=== PATIENT | female | born 1950 | race Caucasian/White ===

== ENCOUNTER 2016-06-25 18:05 | Inpatient (IN) | payer MEDICARE ==
--- NOTE | ~2016-06-25 | IDS ---
Interim Discharge Summary [facility] [address] [place]. [address] NAME: DEENA JAUREGUI : [birth year] STATUS : ADM IN [facility]#: [id number] AGE: 65 ADM/REG DATE : 06/25/16 MR#: [id number] REPORT SERV DATE: 07/10/16 DICTATED BY: MOY CAMACHO DATE: 07/09/16 REPORT STATUS : Draft TRANSCRIBED BY: MODL DATE: 07/09/16 ADMISSION DATE: 06/25/2016 DISCHARGE DATE: Interim summary covers period 07/03/2016 through 07/09/2016. CURRENT DIAGNOSES: 1. Oropharyngeal dysphagia. 2. Moderate malnutrition with calorie count demonstrating 590 kilocalories, 27 g of protein per 24 hour. 36% and 41% estimate of 24-hour needs. 3. PEG tube placement on 07/05/2016, currently on enteral nutrition without complication. 4. Advanced multiple sclerosis with paraplegia. 5. Vancomycin-resistant enterococci on admission, partially treated. 6. Aspiration pneumonia, right lower lobe, treated. 7. Chronic anemia. 8. Chronic thrombocytosis. 9. Chronic wounds present on admission, stable and improving. 10.Systemic hypertension. 11.Left hip fracture, nonoperative intervention planned. 12.Chronic pain disorder. 13.Acute constipation, post PEG placement, improved. 14.Right breast nodule, outpatient mammography and ultrasound needed. 15.Persistent tachycardia and leukocytosis, suspected urinary tract etiology, repeat culture pending, ampicillin for suspected Vancomycin-resistant enterococci initiated today. OPERATIONS AND PROCEDURES DURING INTERIM: Upper GI endoscopy and PEG tube placement on 07/05/[address] Rodriguez. INTERIM SUMMARY: Her hospitalist care was assumed on 07/03/2016. Her calorie count was completed with findings as noted above. PEG tube placement and enteral alimentation were discussed with the patient and her daughter and agreed to. She was seen in followup consultation by Dr. Rodriguez and the above-mentioned procedure was performed. Enteral feeding recommendation by Nutrition Services promote with a goal of 80 mL/h. Today, she is at her goal rate and tolerating this well. She continues p.o. intake. Her chronic medical problems are otherwise unchanged. She was to have been discharged at the end of last week, but had persistent leukocytosis and tachycardia. Her evaluation has included a chest x-ray that shows no pulmonary infiltrate. A KUB is unremarkable post PEG except for free air related to PEG and a large amount of stool. Her PICC line was removed. Blood cultures were obtained and were no growth. Her wounds were inspected 72 hours apart and seem to be improving with no areas of cellulitis or abscess formation. Interim Discharge Summary [facility] [address] [place]. [address] NAME: DEENA JAUREGUI : [birth year] STATUS : ADM IN [facility]#: [id number] AGE: 65 ADM/REG DATE : 06/25/16 MR#: [id number] REPORT SERV DATE: 07/10/16 DICTATED BY: MOY CAMACHO DATE: 07/09/16 REPORT STATUS : Draft TRANSCRIBED BY: MODGeraldo DATE: 07/09/16 On admission, she grew VRE. She received some treatment. A followup urine today obtained from her suprapubic catheter suggest an ongoing infection. Current plan is to initiate ampicillin IV on the assumption that this is persistent VRE, with antibiotic directed sensitivity adjustments pending final culture results. Her plans are to return home with home health care and continuous feeding. Hospitalist care to be assumed by Dr. Cheung. DD/TEDDY Moy Camacho M.D. / [id number] CC: Ed Power M.D.
--- NOTE | ~2016-06-25 | IDS ---
Interim Discharge Summary [facility] [address] [place]. [address] NAME: DEENA JAUREGUI : [birth year] STATUS : ADM IN [facility]#: [id number] AGE: 65 ADM/REG DATE : 06/25/16 MR#: [id number] REPORT SERV DATE: 07/03/16 DICTATED BY: BEN PEDRO DATE: 07/02/16 REPORT STATUS : Draft TRANSCRIBED BY: MODGeraldo DATE: 07/02/16 ADMISSION DATE: 06/25/2016 DISCHARGE DATE: WORKING DIAGNOSES: 1. Acute encephalopathy, present on admission, resolved. 2. Urinary tract infection, resolving. 3. Question aspiration pneumonia, resolving. 4. Advanced multiple sclerosis, longstanding with debilitation at baseline. 5. Dysphagia. 6. Left femur fracture, conservative management. 7. Hypertension. CONSULTS: 1. GI. 2. Orthopedic Surgery. 3. Critical Care. PROCEDURES: None. HOSPITAL COURSE: This is a 65-year-old lady who was admitted to the hospital with an acute encephalopathy and hypotension, for details please refer to H and P by Dr. Borjas. Also, for details of the patient's ICU stay, please refer to interim discharge summary by Dr. Aragon. By the time I assumed care of this patient, the patient was actually doing much better. The patient's initial presentation of acute encephalopathy has all resolved, and the patient was basically back at her baseline. In going over the patient's medical conditions, it was noted the patient was suffering from a long-standing multiple sclerosis that is quite advanced. The patient also seemed to have been suffering from dysphagia, and there was a potential aspiration pneumonia. As part of the reason for patient's sepsis on initial hospital admission, the patient was seen by Speech Therapy who recommended video esophagram. Unfortunately, the patient is not able to keep herself up for the duration of video esophagram due to her advanced multiple sclerosis. The patient also had a bedside swallow screen per RN which she did not pass. Interestingly, the patient is not grossly aspirating, and the patient has been tolerating diet even by the time I assumed care. I had a lengthy discussion with the patient and the patient's family, who actually has medical background, and they requested an evaluation for a feeding tube which would likely reduce her chance of aspiration in the future. Dr. Rodriguez of Gastroenterology was thus involved. However, based on the fact that the patient was tolerating p.o. without any obvious aspiration episodes, he did not feel that an invasive procedure such as PEG tube placement was warranted at this point in time. Instead, 72 hour calorie count was suggested, and if the patient is not able to maintain adequate caloric intake, the patient will be re-evaluated for PEG tube placement, and thus, the last couple of days of the hospital stay has been simply monitoring the patient for any further episodes of obvious aspiration as well as calorie counting. The patient has now completed her antibiotic course by the end of today, and the patient will be ready for discharge any time she completes the calorie count unless other complications arise. Interim Discharge Summary [address] [place]. [address] NAME: DEENA JAUREGUI : [birth year] STATUS : ADM IN [facility]#: [id number] AGE: 65 ADM/REG DATE : 06/25/16 MR#: [id number] REPORT SERV DATE: 07/03/16 DICTATED BY: BEN PEDRO DATE: 07/02/16 REPORT STATUS : Draft TRANSCRIBED BY: TEDDY DATE: 07/02/16 Peace/TEDDY Ben Pedro MD / [id number] CC: Ben Pedro MD
--- NOTE | ~2016-06-25 | EGD ---
EGD REPORT [facility] [address] [address] NAME: CANDE JAUREGUI : [birth year] STATUS : ADM IN PAT#: [id number] AGE: 65 ADM/REG DATE : 06/25/16 MR#: [id number] REPORT SERV DATE: 07/05/16 DICTATED BY: JOSEE DAMICO DATE: 07/05/16 REPORT STATUS : Draft TRANSCRIBED BY: [facility] DATE: 07/05/16 [facility] Patient Name: Cande Jauregui Date of : 1950 Attending MD: JOSEE DAMICO MD Procedure Date No Time: 07/05/2016 Procedure: Upper GI endoscopy Indications: Place PEG due to neurological disorder ( severe MS ) causing impaired swallowing, Malnutrition Referring MD: PRADEEP TREVINO Medicines: Propofol per Anesthesia Complications: No immediate complications. Procedure: After obtaining informed consent, the endoscope was passed under direct vision. Throughout the procedure, the patient's blood pressure, pulse, and oxygen saturations were monitored continuously. The GIF [id number] was introduced through the mouth, and advanced to the third part of duodenum. The upper GI endoscopy was accomplished without difficulty. The patient tolerated the procedure well. Findings: The examined esophagus was normal. A small hiatus hernia was present. as seen on retroflexion Diffuse mild inflammation characterized by congestion (edema) and erythema was found in the entire examined stomach. The patient was placed in the supine position for PEG placement. The stomach was insufflated to appose gastric and abdominal gill. A site was located in the body of the stomach with excellent transillumination for placement. The abdominal wall was marked and prepped in a sterile manner. The area was anesthetized with 3 mL of 1% lidocaine. The trocar needle was introduced through the abdominal wall and into the stomach under direct endoscopic view. A snare was introduced through the endoscope and opened in the gastric lumen. The guide wire was passed through the trocar and into the open snare. The snare was closed around the guide wire. The endoscope and snare were removed, pulling the wire out through the mouth. A skin incision was made at the site of needle insertion. The externally removable 24 Fr EndoVive Safety gastrostomy tube was lubricated. The G-tube was passed over the guide wire through the mouth, and into the stomach. The trocar needle was removed, and the gastrostomy tube was pulled out from the stomach through the skin. The guide wire was removed, and the external bumper attached to the gastrostomy tube. The feeding tube was then cut to an appropriate length. The final position of the gastrostomy tube was confirmed by relook endoscopy, and skin marking noted to be 3 cm at the external bumper. The final tension EGD REPORT [address] [place]. [address] NAME: CANDE JAUREGUI : [birth year] STATUS : ADM IN [facility]#: [id number] AGE: 65 ADM/REG DATE : 06/25/16 MR#: [id number] REPORT SERV DATE: 07/05/16 DICTATED BY: JOSEE DAMICO DATE: 07/05/16 REPORT STATUS : Draft TRANSCRIBED BY: [employer] DATE: 07/05/16 and compression of the abdominal wall by the PEG tube and external bumper were checked and revealed that the bumper was loose and lightly touching the skin and that the PEG balloon was loose and lightly touching the stomach. The feeding tube was capped, and the tube site was cleaned and dressed. The examined duodenum was normal. Impression: - Normal esophagus. - Hiatus hernia. - Gastritis. - Normal examined duodenum. - An externally removable PEG placement was successfully completed. Recommendation: - Clear liquid diet. - Return to previous diet. - Please follow the post-PEG recommendations including: may use PEG today for meds and water and may use PEG tomorrow for feedings. - [facility] patient to [facility] care. Procedure Code(s): --- Professional --- 51549, Esophagogastroduodenoscopy, flexible, transoral; with directed placement of percutaneous gastrostomy tube Diagnosis Code(s): --- Professional --- K44.9, Diaphragmatic hernia without obstruction or gangrene K29.70, Gastritis, unspecified, without bleeding R29.81, Other symptoms and signs involving the nervous system R13.10, Dysphagia, unspecified Z43.1, Encounter for attention to gastrostomy E46, Unspecified protein-calorie malnutrition CPT copyright 2013 [employer] [place] [employer]. All rights reserved. The codes documented in this report are preliminary and upon asphalt paver operator review may be revised to meet current compliance requirements. Josee Damico MD JOSEE DAMICO MD 07/05/2016 4:38 PM This report has been signed electronically. Number of Addenda: 0 EGD REPORT [facility] [address] [place], [place] [address] [place], [place]. [address] NAME: CANDE JAUREGUI : [birth year] STATUS : ADM IN [facility]#: [id number] AGE: 65 ADM/REG DATE : 06/25/16 MR#: [id number] REPORT SERV DATE: 07/05/16 DICTATED BY: JOSEE DAMICO DATE: 07/05/16 REPORT STATUS : Draft TRANSCRIBED BY: [employer] DATE: 07/05/16 Note Initiated On: 07/05/2016 3:39 PM Scope Withdrawal Time 0 hours 0 minutes 0 seconds [address] [place] [address]
--- NOTE | ~2016-06-25 | HP ---
History And Physical [facility] [address] [place]. [address] NAME: DEENA JAUREGUI : [birth year] STATUS : ADM IN PAT#: [id number] AGE: 65 ADM/REG DATE : 06/25/16 MR#: [id number] REPORT SERV DATE: 06/26/16 DICTATED BY: MOY BORJAS DATE: 06/26/16 REPORT STATUS : Draft TRANSCRIBED BY: TEDDY DATE: 06/26/16 DATE OF ADMISSION: 06/25/2016 CHIEF COMPLAINT: Altered mental status. HISTORY OF PRESENT ILLNESS: The patient is a 65-year-old white female with a past medical history of end-stage multiple sclerosis with severe debilitation with paraplegia and chronically bed-bound as well as a history of decubitus ulcers with a history of recurrent urinary tract infections who was brought to the emergency room earlier today by her family with complaints of altered mental status and increasing lethargy. Daughter is not at the bedside at the time of my interview, but per the ER report, the patient's daughter brought her to the emergency room today after she had noticed some increasing lethargy over the past 24 hours. Initially on arrival here to the emergency room, the patient was hypotense with a systolic blood pressure in the 60s and 70s and an elevated white blood cell count at 28,000 as well as evidence of a urinary tract infection. She was thought to be septic and was given antibiotics as well as some IV fluids. It was then noted that she is on chronic narcotics and was given a dose of Narcan by the ER physician. After the dose of Narcan, patient's mental status improved dramatically, and she woke up and began conversing. She then began to doze back off and so was started on a Narcan drip and was sent up to the ICU for further management. The patient received 2 L IV fluids in the emergency room, which improved her blood pressure. In talking with the patient, she says that she has had some secretions with a cough for the last 3 days. She notes that she has been running some low- grade fevers, but no chills or sweats. She denies any sick contacts. She also notes some increasing shortness of breath over the last day or two. She says this is atypical for her. She denies any pain. She denies any recent trauma or falls. PAST MEDICAL HISTORY: 1. Severe multiple sclerosis with paraplegia and chronic bed-bound state. 2. History of recurrent chronic urinary tract infections with indwelling suprapubic Haji catheter. 3. History of multiple decubitus ulcers followed by Dr. Marquez. 4. Mitral valve prolapse. 5. Hypertension. 6. History of nephrolithiasis, status post left ureteral stent placement for hydronephrosis. 7. History of colostomy. 8. History of hysterectomy. 9. History of knee surgery. ALLERGIES: INCLUDE CONTRAST, ROCEPHIN, AND COMPAZINE. HOME MEDICATIONS: See medication reconciliation form. SOCIAL HISTORY: Lives with her daughter. No tobacco, alcohol, or IV drug abuse. FAMILY HISTORY: Reviewed per the chart, mother with cancer and her father with hypertension. History And Physical [address] [address] NAME: DEENA JAUREGUI : [birth year] STATUS : ADM IN [facility]#: [id number] AGE: 65 ADM/REG DATE : 06/25/16 MR#: [id number] REPORT SERV DATE: 06/26/16 DICTATED BY: MOY BORJAS DATE: 06/26/16 REPORT STATUS : Draft TRANSCRIBED BY: TEDDY DATE: 06/26/16 REVIEW OF SYSTEMS: Ten-point review of systems is negative except as mentioned in the HPI. PHYSICAL EXAMINATION: VITAL SIGNS: Temperature 98.4, heart rate 116, blood pressure 152/67, respiratory rate 15, saturations 96%. GENERAL: No acute distress. HEENT: Pupils equal, round, and reactive to light. Extraocular movements intact. Dry mucous membranes. NECK: Supple, nontender. No lymphadenopathy. No thyromegaly. No jugular venous distention. LUNGS: Coarse upper airway transmitted breath sounds. No wheezes. CARDIOVASCULAR: Tachycardic. No murmurs, rubs, or gallops. ABDOMEN: Soft, nontender, nondistended. Positive bowel sounds. No hepatosplenomegaly. EXTREMITIES: Contractures noted. No cyanosis or clubbing. NEURO: Alert and oriented x3. The patient had some mild dysphonia. Does not move extremities chronically. PSYCH: Appears appropriate. LABS AND IMAGING: Urinalysis with large leukocyte esterase, 105 white blood cells, occasional bacteria. Negative nitrites. Lactic acid 0.7. CBC remarkable for a white count of 28,000 with 83% neutrophils. BNP 39. ABG with a pH of 7.42, PCO2 of 33, PO2 of 80 on 28% FiO2. Metabolic profile with a procalcitonin of 0.24, creatinine of 0.4. Cardiac enzymes within normal limits. Chest x-ray shows no acute cardiopulmonary process. ASSESSMENT AND PLAN: The patient is a 65-year-old female with past medical history of end- stage multiple sclerosis with paraplegia and chronic bed-bound state with a chronic indwelling Haji catheter as well as suprapubic catheter who presents with one-day history of lethargy with cough, shortness of breath, low-grade fevers, now status post Narcan administration on Narcan drip with improved mental status but with profound leukocytosis and very tenuous respiratory status. 1. Urinary tract infection. The patient with evidence of pyuria on her urinalysis. She does have a chronic indwelling Haji as well as suprapubic catheter. Empirically, we are placing her on antibiotics, checking blood cultures x2 as well as urine culture. Procalcitonin not elevated, but she does have a marked leukocytosis. We will repeat a lactic acid in the morning. We will continue giving her some IV fluids, and if needed, we will start vasopressors, but currently, her blood pressure has responded to IV fluids. 2. Acute encephalopathy. The patient's mental status has improved status post Narcan administration. Most likely, patient's mental status changes are multifactorial secondary to urinary tract infection as well as chronic opioid use. We will continue the Narcan drip overnight and attempt to wean it off as tolerated. Currently, patient's respiratory rate is okay. We will continue to monitor her neurologic status, and if she fails to protect her airway, we would have a low threshold to intubate the patient. Hold her home narcotics for now. 3. Acute hypoxic respiratory failure. The patient is having worsening oxygenation since History And Physical [address] [place]. [address] NAME: DEENA JAUREGUI : [birth year] STATUS : ADM IN [facility]#: [id number] AGE: 65 ADM/REG DATE : 06/25/16 MR#: [id number] REPORT SERV DATE: 06/26/16 DICTATED BY: MOY BORJAS DATE: 06/26/16 REPORT STATUS : Draft TRANSCRIBED BY: TEDDY DATE: 06/26/16 her time in the emergency room. She has very coarse upper airway sounds, and I suspect she is having a hard time with secretions and having a difficult time clearing them given her multiple sclerosis. We are providing deep suctioning as tolerated as well as percussion bed. If patient is able to participate, then we will give her EzPAP flutter valve as well. With her multiple sclerosis, though it may be difficult for her to continue to clear her secretions, and I would have a very low threshold to intubate her tonight should her respiratory status continue to decline. 4. The patient will be on heparin for deep venous thrombosis prophylaxis and Protonix for GI prophylaxis. 5. The patient has high probability of sudden clinically significant or life-threatening deterioration in her condition. Total critical care time spent on this patient was 40 minutes. MANDI/TEDDY Moy Borjas MD / [id number]
--- NOTE | ~2016-06-25 | IDS ---
Interim Discharge Summary [facility] [address] [place]. [address] NAME: DEENA JAUREGUI : [birth year] STATUS : ADM IN [facility]#: [id number] AGE: 65 ADM/REG DATE : 06/25/16 MR#: [id number] REPORT SERV DATE: 06/27/16 DICTATED BY: ABDI ARAGON IV DATE: 06/27/16 REPORT STATUS : Draft TRANSCRIBED BY: TEDDY DATE: 06/27/16 ADMISSION DATE: 06/25/2016 DISCHARGE DATE: DATE OF TRANSFER TO THE FLOOR: 06/27/2016 ADMITTING DIAGNOSES: 1. Hypotension, resolved, never requiring vasopressor agents. 2. Encephalopathy, resolved. 3. Advanced multiple sclerosis. 4. Chronic urinary tract infection/questionable pneumonia, on antibiotic therapy with cultures pending, though what appeared to be a beta strep in the urine. 5. Dysphagia. Swallow evaluation pending. 6. Left femur fracture. Being followed by Orthopedic Surgery. 7. Hypertension. 8. Electrolyte abnormalities, corrected. CONSULTANTS: 1. Orthopedic Surgery. Being followed by Dr. Riddle with decision made to conservatively treat the left hip fracture without surgery. 2. Neurology who continues to follow the patient. 3. Speech Therapy with swallow evaluation. 4. Physical Therapy and Occupational Therapy for her multiple sclerosis. PROCEDURES: The patient underwent abdominal CT scan demonstrating infiltrate at the right base, possibly representing pneumonia and what appeared to be acute fracture of the left femur. The patient does have a subcutaneous nodule slightly larger than two years ago on her right breast which the family is aware of possible need for followup. The CT scan of the brain which demonstrated atrophy with deep white matter changes, being followed by Neurology. MEDICATIONS AT THE TIME OF TRANSFER: Bactroban under nose twice a day, heparin 5000 units q.12 hours, Maxipime 1 g q.6 hours, Protonix 40 mg daily, and Proventil, EzPAP q.4 hours while awake and q.2 hours as needed and Lopressor 2.5 mg IV q.6 hours. HOSPITAL COURSE: The patient was admitted from the emergency room by Dr. Borjas on the supervisor laboratory animal facility of 06/26/2016, with altered mental status that appeared to respond to Narcan as well as presumed urosepsis. She received fluid boluses with resolution of the hypotension, never required vasopressor agents. Her narcotic medications were held with improvement of her mental status. She did undergo the head CT scan with results as noted. Neurology continues to follow the patient. She was empirically placed on ceftriaxone initially, though changed to cefepime because of a partially-resistant Enterobacter on previous urine cultures. White count decreased and the patient had noted clinical improvement. There was a concern about swallow function for which a bedside speech evaluation has been ordered though a modified barium swallow study will be obtained if required. She had some tachycardia likely Interim Discharge Summary [address] [place]. [address] NAME: DEENA JAUREGUI : [birth year] STATUS : ADM IN PAT#: [id number] AGE: 65 ADM/REG DATE : 06/25/16 MR#: [id number] REPORT SERV DATE: 06/27/16 DICTATED BY: ABDI ARAGON IV DATE: 06/27/16 REPORT STATUS : Draft TRANSCRIBED BY: TEDDY DATE: 06/27/16 secondary to beta-carlos withdrawal for which she was started on low-dose IV Lopressor which will be transitioned back to Coreg if indicated. There were some electrolyte abnormalities, which were corrected. She had the left femur fracture which was noted with no acute trauma and no significant pain. Dr. Calvin Riddle evaluated the patient and felt that conservative therapy was most prudent without plan for surgery at this time. The patient did have rhonchi on exam for which she was placed on albuterol, the EzPAP with clinical improvement. She is on cefepime which may also treat the possible pneumonia at the right base. Urine antigens for Legionella and Pneumococcus are pending. I felt the patient was stable for transfer to the floor. We will ask Hospitalist Service to assume primary care. FRANCO/TEDDY Abdi Aragon IV, M.D. / [id number] CC: MD Smith Silva M.D.
--- NOTE | ~2016-06-25 | CN ---
Consultation Report [facility] [address] [place]. [address] NAME: DEENA JAUREGUI : 48 STATUS : ADM IN [facility]#: [id number] AGE: 65 ADM/REG DATE : 06/25/16 MR#: [id number] REPORT SERV DATE: 06/26/16 DICTATED BY: MYESHA FREGOSO DATE: 06/26/16 REPORT STATUS : Draft TRANSCRIBED BY: TEDDY DATE: 06/26/16 NEUROLOGICAL CONSULTATION EVALUATION DATE OF CONSULTATION: 06/26/2016 REASON FOR CONSULTATION: Altered mental status, multiple sclerosis, chronic paraplegia. HISTORY OF PRESENT ILLNESS: This is a 65-year-old white female with a known history of chronic multiple sclerosis with chronic paraplegia who is bedbound and had suffered multiple admissions for recurrent urinary tract infections and infections related to multiple decubitus affecting her buttocks and lumbosacral region. The patient was brought by her daughter to the hospital with a history of 24-hour lethargy-altered mental status and decreased p.o. intake, cough, gurgling sounds, and the patient was difficult to arouse. Upon arrival to the emergency room, she was found to be hypotensive with systolic blood pressure of 60 and elevated WBC count of 28,000. The patient was suspected to have urosepsis and urinary tract infection. She was started on antibiotics and IV fluids. The patient was also found to have an acute fracture of left femur, which appeared to be a comminuted intratrochanteric fracture, which was found on the CT of the hips. The patient on admission to the emergency room was given Narcan, which improved her mental status with improvement of her lethargy. The patient, however, persisted with mental status which was far from her baseline. She was found also to be hypoxic and has been on a Ventimask support. PAST MEDICAL HISTORY: Significant for a history of chronic, probably end-stage multiple sclerosis with history of paraplegia and chronically bed-bound state, history of multiple admissions for urinary tract infection. The patient has indwelling suprapubic Haji catheter; history of hypertension; history of nephrolithiasis and ureteral stent placement for hydronephrosis; history of recurrent infection of the decubitus ulcers, multiple and very chronic. PAST SURGICAL HISTORY: Includes history of knee surgery and hysterectomy. ALLERGIES: COMPAZINE, CONTRAST? ROCEPHIN. HOME MEDICATIONS: Not available in the chart and they were to be found. The patient stated she had been on Copaxone and other medications. She does take narcotics chronically for chronic pain. From her previous hospitalization's history and physical, the patient at that time was on Zoloft, Coreg, Lipitor, and Detrol. SOCIAL HISTORY: The patient lives with her daughter. There is no history of smoking or alcohol use. No history of drug use. FAMILY HISTORY: Significant for history of cancer in patient's father and history of hypertension. There is no family history of multiple sclerosis or other neurological Consultation Report [facility] [address] [place]. [address] NAME: DEENA JAUREGUI : [birth year] STATUS : ADM IN [facility]#: [id number] AGE: 65 ADM/REG DATE : 06/25/16 MR#: [id number] REPORT SERV DATE: 06/26/16 DICTATED BY: MYESHA FREGOSO DATE: 06/26/16 REPORT STATUS : Draft TRANSCRIBED BY: TEDDY DATE: 06/26/16 conditions. REVIEW OF SYSTEMS: As mentioned, the patient has a history of chronic pain. She is not able to move her legs, has markedly decreased mobility of the left arm. She has a functional right arm. The patient has had increasing cough in the last few days. The patient, however, denied having difficulty with swallowing, chewing, or eating. The patient has had recurrent urinary tract infections as mentioned above. She denied having history of falling or any injury. The patient does not have recollection of any events that may have precipitated and may have caused her left hip fracture. The patient has had her gurgling sound in her throat since last Saturday. The patient has indwelling urinary catheter and has had recurrent urinary tract infections as mentioned above. The rest of the 14-point review of system was negative. The patient denied chest pain. Denied shortness of breath despite the fact that she has had some difficulty breathing on admission. Her decubitus ulcers have been chronic under treatment. There was a mention of stage V decubitus three years ago, which at this point is assumed to be stage III decubitus ulcer, 3 of them in the bilateral buttocks and sacral area. PHYSICAL EXAMINATION: GENERAL: Patient appears to be more alert this morning on the Ventimask, was able to provide some answers. Additional information was obtained from the patient's daughter who came towards the end of the consultation. The patient's daughter stated that the patient has been lethargic only since yesterday. The cough may have started on Saturday, and there is no history of trauma. The patient moved to change the body position every four hours. However, there is no history of falling out of bed or any violent movements. Her urinary catheter is changed by home health and that does not appear to be causing any increase of movements that could cause trauma. VITAL SIGNS: Blood pressure 116/45. Pulse was 120, respirations 18, temperature was 99.2, FiO2 of 50. The patient's weight is 70 kilos. HEENT: Otherwise, showed her to be normocephalic. There was no evidence of trauma. NECK: Auscultation of the neck showed increase of gurgling respiratory sounds. Bruits were not audible. CHEST: Symmetrical. Decreased breath sounds. Coarse rhonchi noted. ABDOMEN: Soft, nontender. Suprapubic catheter. EXTREMITIES: The patient has bilateral lower extremity atrophy with bilateral foot drop, significant muscle atrophy, stage III decubitus in the right and left buttock and in the sacral region. Peripheral pulses were intact. SKIN: Showed no ecchymosis, petechiae, or hemorrhages. NEUROLOGICAL EXAMINATION: Patient was alert, oriented to self and hospital, was able to respond to all the questions, had some difficulty with dates of her history. Her speech was mildly dysarthric. The patient had difficulty clearing her secretions. Eye exam: Sclerae were not icteric. Conjunctiva was pink. ENT exam showed slightly decreased airway. Mallampati class 2. No facial asymmetry was detected and extraocular movements were full. Pupils were 2-3 mm equal, round, and reactive to light and accommodation. Extraocular movements as mentioned above and upper and downward movements were intact and conjugate. Consultation Report [place] [id number] [facility] [place]. [address] NAME: DEENA JAUREGUI : 48 STATUS : ADM IN [facility]#: [id number] AGE: 65 ADM/REG DATE : 06/25/16 MR#: [id number] REPORT SERV DATE: 06/26/16 DICTATED BY: MYESHA FREGOSOJMAN DATE: 06/26/16 REPORT STATUS : Draft TRANSCRIBED BY: MODL DATE: 06/26/16 Hearing was intact bilaterally. Lower cranial nerves. Gag reflex is normal. Palate elevated symmetrically. Voice appeared raspy. Motor Exam: The patient has marked atrophy of both lower extremities and left distal upper extremity and contractures, bilateral foot drops, and claw-like contracture in the left hand. Right arm appears to be functional, strength of 4+/5 proximally and 5-/5 distally. Deep tendon reflexes were absent in lower extremities and trace in the right arm. Sensory Exam: Patient had sensory level in the midthoracic area and no perception of touch, vibration, and temperature distally in both lower extremities. No perception of pain in the buttocks area. The tone was increased in both lower extremities and left arm. There was no clonus. LABORATORY STUDIES: Sodium 145, potassium 3.8, chloride 112, CO2 of 22, BUN 9, creatinine 0.42. Glomerular filtration rate 107. Glucose 108, magnesium 2, phosphorus 2.6. WBC count 20,700, hemoglobin 8.8, hematocrit 28.7. PT/INR 1.2. Platelet count 586,000. CURRENT MEDICATIONS: Include ceftriaxone, Rocephin 2 g IV q.24 hours, heparin 5000 units subcu q.12 hours, and pantoprazole 40 mg IV daily. IMPRESSION: This is a patient with chronic, probably end-stage multiple sclerosis with recurrent hospitalizations for recurrent urinary tract infection. At this point, the patient also has signs of possible aspiration in view of her having some difficulty clearing her secretions. The patient is bed bound with multiple decubitus ulcers chronically, which have been followed by home health and wound care and appeared to be in the healing stages; however, at least stage III ulcer with a depth of approximately 2-3 cm in each buttock and sacral area, 0.8 cm, presenting a source of chronic and recurrent infection in view of patient's having paraplegia and no control of her bowel or bladder function. At present, we would recommend to hold patient's Copaxone until the source of infection is determined and treated and recommend to Physical Therapy reevaluate the patient to determine any additional help the patient may need at home. The patient has an acute comminuted femur fracture most likely secondary to severe osteoporosis which perhaps needs to be addressed from a medical standpoint. I would recommend a swallowing assessment and nutritional assessment. Laboratory studies should include serum, vitamin B12, folate level, and vitamin D levels. Thank you for allowing us to participate in this patient's care. LONNIE/TEDDY Myesha Fregoso MD / [id number] CC: Tommie Borjas MD Consultation Report [address] [address] NAME: DEENA JAUREGUI : 48 STATUS : ADM IN [facility]#: [id number] AGE: 65 ADM/REG DATE : 06/25/16 MR#: [id number] REPORT SERV DATE: 06/26/16 DICTATED BY: MYESHA FREGOSO DATE: 06/26/16 REPORT STATUS : Draft TRANSCRIBED BY: TEDDY DATE: 06/26/16 Smith Bedoya M.D.
--- NOTE | ~2016-06-25 | DS ---
Discharge Summary [facility] [address] [facility] [place]. [address] NAME: DEENA JAUREGUI : 48 STATUS : DIS IN PAT#: [id number] AGE: 65 ADM/REG DATE : 06/25/16 MR#: [id number] REPORT SERV DATE: 07/10/16 DICTATED BY: BEN PEDRO DATE: 07/10/16 REPORT STATUS : Draft TRANSCRIBED BY: MODL DATE: 07/10/16 ADMISSION DATE: 06/25/2016 DISCHARGE DATE: 07/10/2016 ADDENDUM: DISCHARGE DIAGNOSES: 1. Oropharyngeal dysphagia. 2. Moderate malnutrition, status post PEG tube placement. 3. Advanced multiple sclerosis with paraplegia. 4. Vancomycin-resistant enterococcal urinary tract infection. 5. Aspiration pneumonia, treated. 6. Chronic anemia. 7. Chronic thrombocytosis. 8. Hypertension. 9. Chronic pain. Please note that this is just an addendum to excellent interim discharge summary dictated by Dr. Tommie Camacho yesterday. By the time I assumed care of this patient today, the patient was already ready for discharge. There is nothing more to add to his interim discharge summary. Total of 40 minutes spent in coordinating this patient's discharge that included setting up home health care and extensively educating the patient and the family regarding her progressive neurologic illness of multiple sclerosis. DICTATED BY: MD BRYON Bennett/TEDDY Ben Pedro MD / [id number] CC: MD Smith Bennett M.D.
--- NOTE | ~2016-06-25 | EHP ---
ER History and Physical [address] [place] [place]. [address] NAME: DEENA JAUREGUI : 48 STATUS : ADM IN PAT#: [id number] AGE: 65 ADM/REG DATE : 06/25/16 MR#: [id number] REPORT SERV DATE: 06/26/16 DICTATED BY: SOFIA LAUREN DATE: 06/25/16 REPORT STATUS : Draft TRANSCRIBED BY: MODL DATE: 06/25/16 CHIEF COMPLAINT: Lethargy. HISTORY OF PRESENT ILLNESS: The patient is a 65-year-old, white female who presented to [facility] Emergency Room with lethargy and signs of sepsis. She was originally seen by the daytime physician, and workup was ordered, and started. I assumed care of the patient around 5.15 and patient's lab work came back. Obviously, the patient was septic. Antibiotics were started. The patient had urinary tract infection. I went to evaluate the patient, and the patient was somewhat lethargic. ABG initially was unremarkable so a repeat ABG was done again and there was concern that patient may be hypercapnic, this was normal. The patient's exam was unremarkable except she was severely obtunded. At this point, Narcan was given with improvement of the patient's mental status. However, she still was lethargic so a CT scan of the brain as well as a CT scan of her abdomen and pelvis was ordered to rule out a stroke and also rule out retained stone as the cause of her urinary tract infection and sepsis. During this time, patient become hypotensive. They had already began resuscitation of normal saline as the patient required further normal saline boluses. CT scan of abdomen and pelvis are pending at time of admission. I have discussed this case with Dr. Borjas who has agreed to admit the patient to the ICU. Currently the patient has required multiple rounds of Narcan and is now on a Narcan drip, is awake, alert, and oriented. Her respiratory status has been somewhat concerning and she has rattling breath sounds and poor respiratory effort. Her ABGs have remained normal, and her O2 saturation has remained stable. Because of this, I am admitting the patient to ICU as I am concerned respiratory status may decline given IV hydration. Her initial chest x-ray was unremarkable here. It appears that the patient's sepsis is purely driven by her urinary tract infection. As above, I discussed this case with test evaluator and plan of care as well as a resuscitative efforts done here in the ER. The patient will go to the ICU under his care. Please document greater than 75 minutes of critical care time went with stabilization of the patient for her hypotensive septic shock as well as obtundation and what appears to be an opiate overdose. Please see the paper chart for full history and physical details as well as diagnosis. BK/MODL Sofia Lauren, / [id number] CC: MD Smith Silva M.D.
[2016-06-25 15:45] LABS: ALLENS TEST Pos; BE (BASE EXCESS) 0.6 MEQ/L (0 +/- 2.5); CARBOXYHEMOGLOBIN 1.4 % (0-3); HCO3 (ACTUAL BICARBONATE) 23.4 MEQ/L (23-27); HEMOBLOGIN CONTENT 11.2 G/DL (12-16); INSTRUMENT SERIAL # 8087; METHEMOGLOBIN 0.4 % (0-3); O2 CONTENT 14.2 VOL% (18-24); OPERATOR ID 32214; PCO2 (CO2 TENSION) 31 MMHG (35-45); PO2 (O2 TENSION) 60 MMHG (79-93); SAMPLE Arterial; pH 7.49 (7.37-7.43)
[2016-06-25 17:04] LABS: BASOPHILS 0.1 %; BASOPHILS ABSOLUTE 0.04 10/3/uL (0.0-0.16); EOSINOPHILS 1.1 %; EOSINOPHILS ABSOLUTE 0.31 10/3/uL (0.0-0.53); HEMOGLOBIN 9.9 g/dL (12.0-16.0); IMMATURE GRANULOCYTES 0.5 %; IMMATURE GRANULOCYTES ABSOLUTE 0.13 10/3/uL (0.0-0.11); LYMPHOCYTES ABSOLUTE 1.96 10/3/uL (0.67-4.30); MEAN CORPUS HGB CONC 30.9 g/dL (32.0-36.0); MEAN CORPUSCULAR HEMOGLOB 27.3 pg (26.0-34.0); MEAN CORPUSCULAR VOLUME 88.2 fL (80-100); MEAN PLATELET VOLUME 8.5 fL (9.2-13.0); MONOCYTES ABSOLUTE 2.26 10/3/uL (0.21-1.20); NEUTROPHILS 83.3 %; NEUTROPHILS ABSOLUTE 23.43 10/3/uL (2.02-8.40); PLATELET COUNT 698 10/3/uL (150-400); RBC DISTRIBUTION WIDTH 17.1 % (12.0-16.0)
[2016-06-25 17:09] LABS: ASCORBIC ACID (UR NOT ORDER) 40 (NEG); BILIRUBIN, URINE NEGATIVE (NEG); ER URINALYSIS TAT 0 Hrs 18 Mins; KETONE, URINE 20 MG/DL (NEG); LEUKOCYTE ESTERASE(NOT OR LARGE (NEG); NITRITE (URINE) NEG (NEG); WBC (NOT ORDERED) (RFLEX) 105 (0-5)
[2016-06-25 17:10] LABS: INTERNATIONAL NORMAL RATI 1.2 UNITS (-); PARTIAL THROMBO TIME 47.5 SEC (22.5-37.2); PROTIME (NOT ORD) 15.3 SEC (12.0-14.5)
[2016-06-25 17:12] LABS: ER CBC TAT 0 Hrs 18 Mins; MANUAL DIFF NO %; RED CELL COUNT 3.63 10/6/uL (4.0-5.6); WHITE BLOOD CELLS 28.1 10/3/uL (4.5-10.5)
[2016-06-25 17:28] LABS: LACTATE 0.7 MMOL/L (0.3-2.4)
[2016-06-25 17:29] LABS: ANISOCYTOSIS 1+ (5-10/OIF) (0-5/OIF); EOSINOPHILS 3 %; EOSINOPHILS ABSOLUTE (CALC) 0.84 10/3/uL (0.0-0.53); ER DIFF TAT 0 Hrs 35 Mins; LYMPHOCYTES 6 %; LYMPHOCYTES ABSOLUTE (CALC) 1.69 10/3/uL (0.67-4.30); MONOCYTES 3 %; MONOCYTES ABSOLUTE (CALC) 0.84 10/3/uL (0.21-1.20); NEUTROPHILS ABSOLUTE (CALC) 24.73 10/3/uL (2.02-8.40); PLATELET ESTIMATE INC (ADEQUATE); SEGMENTED NEUTROPHIL (0) 88 %; TOTAL NUCLEATED CELLS 100
[2016-06-25 17:30] LABS: OVALOCYTES 1+ (3-10/OIF) (0-2/OIF)
[2016-06-25 17:31] LABS: CALCIUM, SERUM 8.7 MG/DL (8.5-10.4); CHLORIDE, SERUM 106 MMOL/L (96-112); CREATININE 0.43 MG/DL (0.55-1.02); GFR AFRICAN AMERICAN 123 ML/MIN (>=60); GFR NON AFRICAN AMERICAN 106 ML/MIN (>=60); GLUCOSE, SERUM 114 MG/DL (60-99); POTASSIUM, SERUM 4.4 MMOL/L (3.5-5.3); SODIUM, SERUM 139 MMOL/L (135-148); TROPONIN I <0.02 NG/ML (<0.05)
[2016-06-25 17:32] LABS: BUN (BLOOD UREA NITROGEN) 15 MG/DL (6-23); CHEST PAIN PROFILE TAT 0 Hrs 30 Mins; CO2 (CARBON DIOXIDE) 29 MMOL/L (24-34); TEARDROP SHAPED RBCS OCC (0-2/OIF)
[~2016-06-25 18:05] MED LIST: ACET500CAP PO; ALEVE220 MG PO; AMINO ACID PO; ANADS PO; ANALGESIC TOP; ATV1 PO; BAZA TOP; BEANO PO; CALMOSEPTINE O2.5 OZ TOP; CALTRA600D PO; COPAXONE SC; COREG3 PO; CRANBERRY1 TAB PO; DETROL2 PO; DETROLLA4 PO; FIBERCON PO; FLEXERIL5 MG PO; FLORANEX PO; FLORASTOR250 MG PO; FLUCON1 PO; FLUCON2 PO; GOODY'S EX-STR1 EAC1 PO; ICY HOT16 % TOP; IMITREX25 PO; KDUR20 PO; KLOR-CON M2020 MEQ PO; LIOR10 PO; LIPITOR10 PO; MACROBID; METROCREAM0.75 % TOP; MONUROL PO; MOTRIN IB200 MG PO; MULTI-VIT HP PO; MULTIVIT/MIN PO; MULTIVITAMI1 PO; MULTIVITAMIN PO; NAP500 PO; NIACIN TR1000 MG PO; NORCO1 TA2 PO; ORAZINC110 MG PO; PERCOGESIC1 TAB OR; PR25 PO; PROBIOTIC PO; PROTEIN SUPPLEMENT; T3 PO; THERGRANM PO; VANCO1P IV; VITAMIN A&D OINT TOP; VITAMIN C OTC PO; VITC500 PO; VOLTAREN1 % TOP; ZIAC5 PO; ZOCOR40 PO; ZOL50 PO; [UNRECOGNIZED DRUG - OTHER] PO; [UNRECOGNIZED DRUG - OTHER] PO
[2016-06-25 18:11] LABS: ALLENS TEST Pos; BE (BASE EXCESS) -2.5 MEQ/L (0 +/- 2.5); CARBOXYHEMOGLOBIN 1.1 % (0-3); DEVICE NC; HCO3 (ACTUAL BICARBONATE) 21.4 MEQ/L (23-27); HEMOBLOGIN CONTENT 10.3 G/DL (12-16); INSTRUMENT SERIAL # 8087; METHEMOGLOBIN 0.3 % (0-3); O2 CONTENT 13.8 VOL% (18-24); OPERATOR ID 35784; PCO2 (CO2 TENSION) 33 MMHG (35-45); PO2 (O2 TENSION) 80 MMHG (79-93); SAMPLE Arterial; pH 7.42 (7.37-7.43)
[2016-06-25] MEDS ORDERED: COREG6 PO (18:18)
[2016-06-25] MEDS ORDERED: NEUR300 PO (18:18)
[2016-06-25] MEDS ORDERED: FLUCON2 PO (18:19)
[2016-06-25] MEDS ORDERED: MAGOX4 PO (18:20)
[2016-06-25] MEDS ORDERED: AZACTAM1 IV (18:20)
[2016-06-25] MEDS ORDERED: NORCO1 TAB PO (18:21)
[2016-06-25] MEDS ORDERED: VITAMIN D31000 UNIT PO (18:21)
[2016-06-25] MEDS ORDERED: DITROXL5 PO (18:21)
[2016-06-25] MEDS ORDERED: ZOL50 PO (18:21)
[2016-06-25] MEDS ORDERED: KLOR-CON M2020 MEQ PO (18:22)
[2016-06-25] MEDS ORDERED: FLEX PO (18:22)
[2016-06-25] MEDS ORDERED: FLORASTOR250 MG PO (18:22)
[2016-06-25] MEDS ORDERED: VITC500 PO (18:22)
[2016-06-25] MEDS ORDERED: FLINTSTONE3 PO (18:23)
[2016-06-25] MEDS ORDERED: COPAXONE SC (18:23)
[2016-06-25] MEDS ORDERED: VOLTAREN1 % TOP (18:24)
[2016-06-25 18:55] LABS: PROCALCITONIN 0.24 ng/mL (<0.5)
[2016-06-26 05:01] LABS: BASOPHILS 0.2 %; BASOPHILS ABSOLUTE 0.04 10/3/uL (0.0-0.16); EOSINOPHILS 2.2 %; EOSINOPHILS ABSOLUTE 0.46 10/3/uL (0.0-0.53); HEMOGLOBIN 8.8 g/dL (12.0-16.0); IMMATURE GRANULOCYTES 0.3 %; IMMATURE GRANULOCYTES ABSOLUTE 0.06 10/3/uL (0.0-0.11); LYMPHOCYTES 7.6 %; LYMPHOCYTES ABSOLUTE 1.58 10/3/uL (0.67-4.30); MEAN CORPUS HGB CONC 30.7 g/dL (32.0-36.0); MEAN CORPUSCULAR HEMOGLOB 27.3 pg (26.0-34.0); MEAN CORPUSCULAR VOLUME 89.1 fL (80-100); MEAN PLATELET VOLUME 8.4 fL (9.2-13.0); MONOCYTES 6.5 %; MONOCYTES ABSOLUTE 1.34 10/3/uL (0.21-1.20); NEUTROPHILS 83.2 %; NEUTROPHILS ABSOLUTE 17.24 10/3/uL (2.02-8.40); PLATELET COUNT 586 10/3/uL (150-400); RBC DISTRIBUTION WIDTH 16.8 % (12.0-16.0); RED CELL COUNT 3.22 10/6/uL (4.0-5.6); WHITE BLOOD CELLS 20.7 10/3/uL (4.5-10.5)
[2016-06-26 05:11] LABS: HEMATOCRIT 28.7 % (36.0-48.0); MANUAL DIFF NO %
[2016-06-26 05:22] LABS: CALCIUM, SERUM 8.3 MG/DL (8.5-10.4); CHLORIDE, SERUM 112 MMOL/L (96-112); CREATININE 0.42 MG/DL (0.55-1.02); GFR AFRICAN AMERICAN 124 ML/MIN (>=60); GFR NON AFRICAN AMERICAN 107 ML/MIN (>=60); GLUCOSE, SERUM 108 MG/DL (60-99); PHOSPHORUS, SERUM 2.6 MG/DL (2.5-4.5); POTASSIUM, SERUM 3.8 MMOL/L (3.5-5.3); SODIUM, SERUM 145 MMOL/L (135-148)
[2016-06-26 05:27] LABS: BUN (BLOOD UREA NITROGEN) 9 MG/DL (6-23); CO2 (CARBON DIOXIDE) 22 MMOL/L (24-34)
[2016-06-26 08:02] LABS: ALLENS TEST Pos; BE (BASE EXCESS) 0.1 MEQ/L (0 +/- 2.5); CARBOXYHEMOGLOBIN 0.5 % (0-3); DEVICE VM; HCO3 (ACTUAL BICARBONATE) 22.7 MEQ/L (23-27); HEMOBLOGIN CONTENT 9.8 G/DL (12-16); INSTRUMENT SERIAL # 8083; METHEMOGLOBIN 0.4 % (0-3); O2 CONTENT 13.3 VOL% (18-24); OPERATOR ID 35091; PCO2 (CO2 TENSION) 30 MMHG (35-45); PO2 (O2 TENSION) 86 MMHG (79-93); SAMPLE Arterial
[2016-06-26 12:16] LABS: FOLATE 34.4 NG/ML (>5.2)
[2016-06-27 05:38] LABS: A/G RATIO 0.6 (0.7-1.9); ALBUMIN 2.4 G/DL (3.5-5.0); CALCIUM, SERUM 8.8 MG/DL (8.5-10.4); CHLORIDE, SERUM 106 MMOL/L (96-112); CO2 (CARBON DIOXIDE) 21 MMOL/L (24-34); CREATININE 0.36 MG/DL (0.55-1.02); GFR AFRICAN AMERICAN 130 ML/MIN (>=60); GFR NON AFRICAN AMERICAN 112 ML/MIN (>=60); GLOBULIN 4.3 G/DL (2.5-4.1); GLUCOSE, SERUM 87 MG/DL (60-99); PHOSPHORUS, SERUM 2.8 MG/DL (2.5-4.5); POTASSIUM, SERUM 3.8 MMOL/L (3.5-5.3); SGOT(AST) 19 U/L (5-40); SGPT(ALT) 22 U/L (5-65); SODIUM, SERUM 141 MMOL/L (135-148); TOTAL BILIRUBIN 0.5 MG/DL (0-1.2); TOTAL PROTEIN 6.7 G/DL (6.0-8.5)
[2016-06-27 05:39] LABS: BASOPHILS 0.2 %; BASOPHILS ABSOLUTE 0.03 10/3/uL (0.0-0.16); EOSINOPHILS 4.6 %; EOSINOPHILS ABSOLUTE 0.85 10/3/uL (0.0-0.53); HEMATOCRIT 30.7 % (36.0-48.0); HEMOGLOBIN 9.5 g/dL (12.0-16.0); IMMATURE GRANULOCYTES 0.3 %; IMMATURE GRANULOCYTES ABSOLUTE 0.06 10/3/uL (0.0-0.11); LYMPHOCYTES 8.4 %; LYMPHOCYTES ABSOLUTE 1.57 10/3/uL (0.67-4.30); MEAN CORPUS HGB CONC 30.9 g/dL (32.0-36.0); MEAN CORPUSCULAR HEMOGLOB 27.9 pg (26.0-34.0); MEAN PLATELET VOLUME 8.7 fL (9.2-13.0); MONOCYTES 6.9 %; MONOCYTES ABSOLUTE 1.29 10/3/uL (0.21-1.20); NEUTROPHILS 79.6 %; NEUTROPHILS ABSOLUTE 14.85 10/3/uL (2.02-8.40); PLATELET COUNT 624 10/3/uL (150-400); RBC DISTRIBUTION WIDTH 16.9 % (12.0-16.0); RED CELL COUNT 3.41 10/6/uL (4.0-5.6); WHITE BLOOD CELLS 18.7 10/3/uL (4.5-10.5)
[2016-06-27 05:40] LABS: ALKALINE PHOSPHATASE 184 U/L (45-117); BUN (BLOOD UREA NITROGEN) 5 MG/DL (6-23)
[2016-06-27 05:41] LABS: MANUAL DIFF NO %
[2016-06-28 06:04] LABS: BUN (BLOOD UREA NITROGEN) 8 MG/DL (6-23); CALCIUM, SERUM 7.9 MG/DL (8.5-10.4); CHLORIDE, SERUM 109 MMOL/L (96-112); CO2 (CARBON DIOXIDE) 22 MMOL/L (24-34); CREATININE 0.44 MG/DL (0.55-1.02); GFR AFRICAN AMERICAN 122 ML/MIN (>=60); GFR NON AFRICAN AMERICAN 105 ML/MIN (>=60); PHOSPHORUS, SERUM 2.5 MG/DL (2.5-4.5); POTASSIUM, SERUM 3.3 MMOL/L (3.5-5.3); SODIUM, SERUM 143 MMOL/L (135-148)
[2016-06-28 06:08] LABS: BASOPHILS 0.2 %; BASOPHILS ABSOLUTE 0.04 10/3/uL (0.0-0.16); EOSINOPHILS 2.9 %; EOSINOPHILS ABSOLUTE 0.58 10/3/uL (0.0-0.53); HEMOGLOBIN 8.3 g/dL (12.0-16.0); IMMATURE GRANULOCYTES 0.4 %; IMMATURE GRANULOCYTES ABSOLUTE 0.08 10/3/uL (0.0-0.11); LYMPHOCYTES 9.7 %; LYMPHOCYTES ABSOLUTE 1.94 10/3/uL (0.67-4.30); MEAN CORPUSCULAR HEMOGLOB 27.9 pg (26.0-34.0); MEAN PLATELET VOLUME 8.6 fL (9.2-13.0); MONOCYTES 7.8 %; MONOCYTES ABSOLUTE 1.56 10/3/uL (0.21-1.20); NEUTROPHILS ABSOLUTE 15.75 10/3/uL (2.02-8.40); PLATELET COUNT 569 10/3/uL (150-400); RBC DISTRIBUTION WIDTH 16.6 % (12.0-16.0); RED CELL COUNT 2.97 10/6/uL (4.0-5.6)
[2016-06-28 06:10] LABS: HEMATOCRIT 25.9 % (36.0-48.0); MANUAL DIFF NO %; MEAN CORPUSCULAR VOLUME 87.2 fL (80-100)
[2016-06-28 06:11] LABS: GLUCOSE, SERUM 124 MG/DL (60-99)
[2016-06-30 03:42] LABS: BASOPHILS 0.3 %; BASOPHILS ABSOLUTE 0.04 10/3/uL (0.0-0.16); EOSINOPHILS 10.7 %; HEMOGLOBIN 8.9 g/dL (12.0-16.0); IMMATURE GRANULOCYTES 0.7 %; LYMPHOCYTES ABSOLUTE 2.11 10/3/uL (0.67-4.30); MEAN CORPUS HGB CONC 31.2 g/dL (32.0-36.0); MEAN CORPUSCULAR HEMOGLOB 27.4 pg (26.0-34.0); MEAN CORPUSCULAR VOLUME 87.7 fL (80-100); MEAN PLATELET VOLUME 8.5 fL (9.2-13.0); MONOCYTES 7.3 %; MONOCYTES ABSOLUTE 1.02 10/3/uL (0.21-1.20); NEUTROPHILS ABSOLUTE 9.29 10/3/uL (2.02-8.40); PLATELET COUNT 597 10/3/uL (150-400); RBC DISTRIBUTION WIDTH 16.5 % (12.0-16.0); RED CELL COUNT 3.25 10/6/uL (4.0-5.6); WHITE BLOOD CELLS 14.1 10/3/uL (4.5-10.5)
[2016-06-30 03:44] LABS: HEMATOCRIT 28.5 % (36.0-48.0); MANUAL DIFF NO %
[2016-06-30 03:53] LABS: BUN (BLOOD UREA NITROGEN) 6 MG/DL (6-23); CALCIUM, SERUM 8.5 MG/DL (8.5-10.4); CHLORIDE, SERUM 110 MMOL/L (96-112); CO2 (CARBON DIOXIDE) 25 MMOL/L (24-34); CREATININE 0.53 MG/DL (0.55-1.02); GFR AFRICAN AMERICAN 115 ML/MIN (>=60); GFR NON AFRICAN AMERICAN 99 ML/MIN (>=60); GLUCOSE, SERUM 150 MG/DL (60-99); SODIUM, SERUM 144 MMOL/L (135-148)
[2016-07-02 06:08] LABS: BASOPHILS 0.6 %; BASOPHILS ABSOLUTE 0.07 10/3/uL (0.0-0.16); EOSINOPHILS ABSOLUTE 1.15 10/3/uL (0.0-0.53); HEMATOCRIT 28.9 % (36.0-48.0); HEMOGLOBIN 8.8 g/dL (12.0-16.0); IMMATURE GRANULOCYTES 0.8 %; IMMATURE GRANULOCYTES ABSOLUTE 0.09 10/3/uL (0.0-0.11); LYMPHOCYTES 24.3 %; LYMPHOCYTES ABSOLUTE 2.79 10/3/uL (0.67-4.30); MEAN CORPUS HGB CONC 30.4 g/dL (32.0-36.0); MEAN CORPUSCULAR VOLUME 88.7 fL (80-100); MEAN PLATELET VOLUME 8.7 fL (9.2-13.0); MONOCYTES ABSOLUTE 0.81 10/3/uL (0.21-1.20); NEUTROPHILS 57.3 %; NEUTROPHILS ABSOLUTE 6.59 10/3/uL (2.02-8.40); PLATELET COUNT 600 10/3/uL (150-400); RBC DISTRIBUTION WIDTH 16.9 % (12.0-16.0); RED CELL COUNT 3.26 10/6/uL (4.0-5.6); WHITE BLOOD CELLS 11.5 10/3/uL (4.5-10.5)
[2016-07-02 06:09] LABS: MANUAL DIFF NO %
[2016-07-02 06:20] LABS: BUN (BLOOD UREA NITROGEN) 7 MG/DL (6-23); CALCIUM, SERUM 8.9 MG/DL (8.5-10.4); CHLORIDE, SERUM 109 MMOL/L (96-112); CO2 (CARBON DIOXIDE) 26 MMOL/L (24-34); CREATININE 0.37 MG/DL (0.55-1.02); GFR AFRICAN AMERICAN 129 ML/MIN (>=60); GFR NON AFRICAN AMERICAN 111 ML/MIN (>=60); GLUCOSE, SERUM 124 MG/DL (60-99); POTASSIUM, SERUM 3.8 MMOL/L (3.5-5.3); SODIUM, SERUM 143 MMOL/L (135-148)
[2016-07-03 05:02] LABS: BASOPHILS 0.6 %; BASOPHILS ABSOLUTE 0.08 10/3/uL (0.0-0.16); EOSINOPHILS 9.4 %; EOSINOPHILS ABSOLUTE 1.23 10/3/uL (0.0-0.53); HEMATOCRIT 30.5 % (36.0-48.0); HEMOGLOBIN 9.4 g/dL (12.0-16.0); IMMATURE GRANULOCYTES 0.9 %; IMMATURE GRANULOCYTES ABSOLUTE 0.12 10/3/uL (0.0-0.11); LYMPHOCYTES 22.4 %; LYMPHOCYTES ABSOLUTE 2.92 10/3/uL (0.67-4.30); MEAN CORPUS HGB CONC 30.8 g/dL (32.0-36.0); MEAN CORPUSCULAR HEMOGLOB 27.6 pg (26.0-34.0); MEAN CORPUSCULAR VOLUME 89.4 fL (80-100); MEAN PLATELET VOLUME 8.6 fL (9.2-13.0); MONOCYTES 6.3 %; MONOCYTES ABSOLUTE 0.82 10/3/uL (0.21-1.20); NEUTROPHILS 60.4 %; NEUTROPHILS ABSOLUTE 7.87 10/3/uL (2.02-8.40); PLATELET COUNT 667 10/3/uL (150-400); RBC DISTRIBUTION WIDTH 16.9 % (12.0-16.0); RED CELL COUNT 3.41 10/6/uL (4.0-5.6)
[2016-07-03 05:03] LABS: MANUAL DIFF NO %
[2016-07-03 05:09] LABS: CALCIUM, SERUM 8.8 MG/DL (8.5-10.4); CHLORIDE, SERUM 107 MMOL/L (96-112); CO2 (CARBON DIOXIDE) 26 MMOL/L (24-34); CREATININE 0.48 MG/DL (0.55-1.02); GFR AFRICAN AMERICAN 118 ML/MIN (>=60); GFR NON AFRICAN AMERICAN 102 ML/MIN (>=60); GLUCOSE, SERUM 113 MG/DL (60-99); SODIUM, SERUM 140 MMOL/L (135-148)
[2016-07-03 05:10] LABS: BUN (BLOOD UREA NITROGEN) 13 MG/DL (6-23); POTASSIUM, SERUM 4.3 MMOL/L (3.5-5.3)
[2016-07-03 12:33] LABS: C-REACTIVE PROTEIN 8.5 MG/L (<8.0); FERRITIN 150 NG/ML (8-252)
[2016-07-03 12:39] LABS: T PROTEIN (ELECT)(NOT OR 6.3 G/DL (6.0-8.5)
[2016-07-03 13:27] LABS: PROCALCITONIN <0.05 ng/mL (<0.5)
[2016-07-04 04:31] LABS: BASOPHILS 0.5 %; BASOPHILS ABSOLUTE 0.06 10/3/uL (0.0-0.16); EOSINOPHILS 8.8 %; EOSINOPHILS ABSOLUTE 1.08 10/3/uL (0.0-0.53); HEMATOCRIT 30.2 % (36.0-48.0); HEMOGLOBIN 9.3 g/dL (12.0-16.0); IMMATURE GRANULOCYTES 0.6 %; IMMATURE GRANULOCYTES ABSOLUTE 0.07 10/3/uL (0.0-0.11); LYMPHOCYTES 23.9 %; LYMPHOCYTES ABSOLUTE 2.95 10/3/uL (0.67-4.30); MEAN CORPUS HGB CONC 30.8 g/dL (32.0-36.0); MEAN CORPUSCULAR HEMOGLOB 27.4 pg (26.0-34.0); MEAN CORPUSCULAR VOLUME 89.1 fL (80-100); MEAN PLATELET VOLUME 8.7 fL (9.2-13.0); MONOCYTES 5.7 %; NEUTROPHILS 60.5 %; NEUTROPHILS ABSOLUTE 7.48 10/3/uL (2.02-8.40); PLATELET COUNT 625 10/3/uL (150-400); RBC DISTRIBUTION WIDTH 16.8 % (12.0-16.0); RED CELL COUNT 3.39 10/6/uL (4.0-5.6); WHITE BLOOD CELLS 12.3 10/3/uL (4.5-10.5)
[2016-07-04 04:35] LABS: MANUAL DIFF NO %
[2016-07-04 11:45] LABS: A/G 0.96 RATIO (0.9-2.10); ALB RELATIVE % 49.1 % (60.0-89.0); ALBUMIN (ELECTRO) 3.09 GM/DL (3.2-5.5); ALPHA 1 (ELECTRO) 0.33 GM/DL (0.1-0.4); ALPHA 1 RELAT % (NOT ORD) 5.3 % (1.0-4.0); ALPHA 2 (ELECTRO) 0.91 GM/DL (0.5-1.10); ALPHA 2 RELAT % 14.5 % (4.5-26.0); BETA GLOBULIN (SPE) 0.83 GM/DL (0.60-1.30); BETA RELATIVE % 13.2 % (9.0-22.0); GAMMA GLOBULIN (SPE) 1.13 G/DL (0.70-1.60); GAMMA RELAT % 17.9 % (6.0-22.0)
[2016-07-06 07:05] LABS: BASOPHILS 0.4 %; BASOPHILS ABSOLUTE 0.04 10/3/uL (0.0-0.16); EOSINOPHILS 7.7 %; EOSINOPHILS ABSOLUTE 0.83 10/3/uL (0.0-0.53); HEMATOCRIT 29.8 % (36.0-48.0); HEMOGLOBIN 9.2 g/dL (12.0-16.0); IMMATURE GRANULOCYTES 0.5 %; IMMATURE GRANULOCYTES ABSOLUTE 0.05 10/3/uL (0.0-0.11); LYMPHOCYTES 16.8 %; LYMPHOCYTES ABSOLUTE 1.81 10/3/uL (0.67-4.30); MEAN CORPUS HGB CONC 30.9 g/dL (32.0-36.0); MEAN CORPUSCULAR HEMOGLOB 27.5 pg (26.0-34.0); MEAN PLATELET VOLUME 8.6 fL (9.2-13.0); MONOCYTES 6.6 %; MONOCYTES ABSOLUTE 0.71 10/3/uL (0.21-1.20); NEUTROPHILS ABSOLUTE 7.32 10/3/uL (2.02-8.40); PLATELET COUNT 556 10/3/uL (150-400); RBC DISTRIBUTION WIDTH 16.9 % (12.0-16.0); RED CELL COUNT 3.35 10/6/uL (4.0-5.6); WHITE BLOOD CELLS 10.8 10/3/uL (4.5-10.5)
[2016-07-06 07:06] LABS: MANUAL DIFF NO %
[2016-07-06 07:21] LABS: A/G RATIO 0.7 (0.7-1.9); ALBUMIN 2.7 G/DL (3.5-5.0); BUN (BLOOD UREA NITROGEN) 14 MG/DL (6-23); CALCIUM, SERUM 8.5 MG/DL (8.5-10.4); CHLORIDE, SERUM 108 MMOL/L (96-112); CO2 (CARBON DIOXIDE) 29 MMOL/L (24-34); CREATININE 0.45 MG/DL (0.55-1.02); GFR AFRICAN AMERICAN 121 ML/MIN (>=60); GFR NON AFRICAN AMERICAN 104 ML/MIN (>=60); GLOBULIN 3.9 G/DL (2.5-4.1); GLUCOSE, SERUM 108 MG/DL (60-99); PHOSPHORUS, SERUM 3.2 MG/DL (2.5-4.5); POTASSIUM, SERUM 3.9 MMOL/L (3.5-5.3); SGOT(AST) 19 U/L (5-40); SGPT(ALT) 23 U/L (5-65); SODIUM, SERUM 142 MMOL/L (135-148); TOTAL BILIRUBIN 0.7 MG/DL (0-1.2); TOTAL PROTEIN 6.6 G/DL (6.0-8.5)
[2016-07-06 07:22] LABS: ALKALINE PHOSPHATASE 218 U/L (45-117)
[2016-07-07 04:40] LABS: BASOPHILS 0.3 %; BASOPHILS ABSOLUTE 0.05 10/3/uL (0.0-0.16); EOSINOPHILS 6.6 %; EOSINOPHILS ABSOLUTE 1.02 10/3/uL (0.0-0.53); HEMATOCRIT 30.6 % (36.0-48.0); HEMOGLOBIN 9.6 g/dL (12.0-16.0); IMMATURE GRANULOCYTES 0.3 %; IMMATURE GRANULOCYTES ABSOLUTE 0.05 10/3/uL (0.0-0.11); LYMPHOCYTES 14.8 %; LYMPHOCYTES ABSOLUTE 2.27 10/3/uL (0.67-4.30); MEAN CORPUS HGB CONC 31.4 g/dL (32.0-36.0); MEAN CORPUSCULAR VOLUME 89.2 fL (80-100); MEAN PLATELET VOLUME 8.9 fL (9.2-13.0); MONOCYTES 7.4 %; MONOCYTES ABSOLUTE 1.14 10/3/uL (0.21-1.20); NEUTROPHILS 70.6 %; NEUTROPHILS ABSOLUTE 10.84 10/3/uL (2.02-8.40); PLATELET COUNT 571 10/3/uL (150-400); RBC DISTRIBUTION WIDTH 17.4 % (12.0-16.0); RED CELL COUNT 3.43 10/6/uL (4.0-5.6)
[2016-07-07 04:41] LABS: MANUAL DIFF NO %; WHITE BLOOD CELLS 15.4 10/3/uL (4.5-10.5)
[2016-07-07 08:08] LABS: CALCIUM, SERUM 8.7 MG/DL (8.5-10.4); CHLORIDE, SERUM 108 MMOL/L (96-112); CO2 (CARBON DIOXIDE) 25 MMOL/L (24-34); CREATININE 0.55 MG/DL (0.55-1.02); GFR AFRICAN AMERICAN 113 ML/MIN (>=60); GFR NON AFRICAN AMERICAN 98 ML/MIN (>=60); GLUCOSE, SERUM 119 MG/DL (60-99); POTASSIUM, SERUM 4.2 MMOL/L (3.5-5.3); SODIUM, SERUM 140 MMOL/L (135-148)
[2016-07-07 08:09] LABS: BUN (BLOOD UREA NITROGEN) 18 MG/DL (6-23)
[2016-07-07 10:59] LABS: C-REACTIVE PROTEIN 5.8 MG/L (<8.0)
[2016-07-07 11:45] LABS: PROCALCITONIN <0.05 ng/mL (<0.5)
[2016-07-08 06:56] LABS: BASOPHILS 0.3 %; BASOPHILS ABSOLUTE 0.04 10/3/uL (0.0-0.16); EOSINOPHILS 6.5 %; EOSINOPHILS ABSOLUTE 0.95 10/3/uL (0.0-0.53); HEMATOCRIT 29.8 % (36.0-48.0); HEMOGLOBIN 9.3 g/dL (12.0-16.0); IMMATURE GRANULOCYTES 0.3 %; IMMATURE GRANULOCYTES ABSOLUTE 0.04 10/3/uL (0.0-0.11); LYMPHOCYTES 15.2 %; MANUAL DIFF NO %; MEAN CORPUS HGB CONC 31.2 g/dL (32.0-36.0); MEAN CORPUSCULAR HEMOGLOB 27.4 pg (26.0-34.0); MEAN CORPUSCULAR VOLUME 87.9 fL (80-100); MONOCYTES 7.6 %; NEUTROPHILS 70.1 %; NEUTROPHILS ABSOLUTE 10.18 10/3/uL (2.02-8.40); PLATELET COUNT 529 10/3/uL (150-400); RBC DISTRIBUTION WIDTH 17.5 % (12.0-16.0); RED CELL COUNT 3.39 10/6/uL (4.0-5.6); WHITE BLOOD CELLS 14.5 10/3/uL (4.5-10.5)
[2016-07-08 07:05] LABS: BUN (BLOOD UREA NITROGEN) 18 MG/DL (6-23); CALCIUM, SERUM 8.3 MG/DL (8.5-10.4); CHLORIDE, SERUM 107 MMOL/L (96-112); CO2 (CARBON DIOXIDE) 29 MMOL/L (24-34); CREATININE 0.51 MG/DL (0.55-1.02); GFR AFRICAN AMERICAN 116 ML/MIN (>=60); GFR NON AFRICAN AMERICAN 100 ML/MIN (>=60); GLUCOSE, SERUM 141 MG/DL (60-99); POTASSIUM, SERUM 4.2 MMOL/L (3.5-5.3); SODIUM, SERUM 140 MMOL/L (135-148)
[2016-07-09 05:38] LABS: BASOPHILS 0.3 %; BASOPHILS ABSOLUTE 0.04 10/3/uL (0.0-0.16); EOSINOPHILS 7.6 %; EOSINOPHILS ABSOLUTE 1.15 10/3/uL (0.0-0.53); HEMOGLOBIN 9.2 g/dL (12.0-16.0); IMMATURE GRANULOCYTES 0.4 %; IMMATURE GRANULOCYTES ABSOLUTE 0.06 10/3/uL (0.0-0.11); LYMPHOCYTES 16.5 %; MEAN CORPUS HGB CONC 30.7 g/dL (32.0-36.0); MEAN CORPUSCULAR HEMOGLOB 27.6 pg (26.0-34.0); MEAN CORPUSCULAR VOLUME 90.1 fL (80-100); MEAN PLATELET VOLUME 9.1 fL (9.2-13.0); MONOCYTES 7.3 %; NEUTROPHILS 67.9 %; NEUTROPHILS ABSOLUTE 10.28 10/3/uL (2.02-8.40); PLATELET COUNT 555 10/3/uL (150-400); RBC DISTRIBUTION WIDTH 17.2 % (12.0-16.0); RED CELL COUNT 3.33 10/6/uL (4.0-5.6); WHITE BLOOD CELLS 15.1 10/3/uL (4.5-10.5)
[2016-07-09 05:40] LABS: MANUAL DIFF NO %
[2016-07-09 11:08] LABS: ASCORBIC ACID (UR NOT ORDER) 40 (NEG); BILIRUBIN, URINE NEGATIVE (NEG); KETONE, URINE NEGATIVE (NEG); LEUKOCYTE ESTERASE(NOT OR LARGE (NEG)
[2016-07-09 11:31] LABS: WBC (NOT ORDERED) (RFLEX) > 182 (0-5)
[2016-07-10 05:49] LABS: BASOPHILS 0.5 %; BASOPHILS ABSOLUTE 0.07 10/3/uL (0.0-0.16); EOSINOPHILS 9.7 %; EOSINOPHILS ABSOLUTE 1.33 10/3/uL (0.0-0.53); HEMATOCRIT 31.1 % (36.0-48.0); HEMOGLOBIN 9.6 g/dL (12.0-16.0); IMMATURE GRANULOCYTES 0.4 %; IMMATURE GRANULOCYTES ABSOLUTE 0.06 10/3/uL (0.0-0.11); LYMPHOCYTES 16.3 %; LYMPHOCYTES ABSOLUTE 2.22 10/3/uL (0.67-4.30); MEAN CORPUS HGB CONC 30.9 g/dL (32.0-36.0); MEAN CORPUSCULAR HEMOGLOB 27.4 pg (26.0-34.0); MEAN CORPUSCULAR VOLUME 88.9 fL (80-100); MONOCYTES 7.6 %; MONOCYTES ABSOLUTE 1.04 10/3/uL (0.21-1.20); NEUTROPHILS 65.5 %; NEUTROPHILS ABSOLUTE 8.93 10/3/uL (2.02-8.40); PLATELET COUNT 572 10/3/uL (150-400); RBC DISTRIBUTION WIDTH 17.4 % (12.0-16.0); WHITE BLOOD CELLS 13.7 10/3/uL (4.5-10.5)
[2016-07-10 05:52] LABS: BUN (BLOOD UREA NITROGEN) 18 MG/DL (6-23); CALCIUM, SERUM 8.5 MG/DL (8.5-10.4); CHLORIDE, SERUM 107 MMOL/L (96-112); CO2 (CARBON DIOXIDE) 29 MMOL/L (24-34); CREATININE 0.49 MG/DL (0.55-1.02); GFR AFRICAN AMERICAN 118 ML/MIN (>=60); GFR NON AFRICAN AMERICAN 102 ML/MIN (>=60); GLUCOSE, SERUM 128 MG/DL (60-99); POTASSIUM, SERUM 4.5 MMOL/L (3.5-5.3); SODIUM, SERUM 141 MMOL/L (135-148)
[2016-07-10 06:08] LABS: MANUAL DIFF NO %
[2016-07-10] MEDS ORDERED: AMOX250SUS PO (10:01)
== END 2016-07-10 17:23 | disposition home health service (06) | DRG 698 ==
LOC: ER 18:05 → MIC 20:20 → 6NO 06-27 16:54
PROVIDERS: Emergency Medicine; Hospitalist; Internal Medicine; Internal Medicine Critical Care Medicine; Internal Medicine Gastroenterology
PROC: 02HV33Z Insertion of Infusion Device into Superior Vena Cava, Percutaneous Approach (ICD-10-PCS; 2016-06-26)
PROC: 4A02X4A Measurement of Cardiac Electrical Activity, Guidance, External Approach (ICD-10-PCS; 2016-06-26)
PROC: 0DH63UZ Insertion of Feeding Device into Stomach, Percutaneous Approach (ICD-10-PCS; principal; 2016-07-05 16:06)
DX: T83.511A Infection and inflammatory reaction due to indwelling urethral catheter, initial encounter (principal); A41.9 Sepsis, unspecified organism; J96.01 Acute respiratory failure with hypoxia; J69.0 Pneumonitis due to inhalation of food and vomit; G93.49 Other encephalopathy; L89.153 Pressure ulcer of sacral region, stage 3; S72.142A Displaced intertrochanteric fracture of left femur, initial encounter for closed fracture; L89.323 Pressure ulcer of left buttock, stage 3; L89.313 Pressure ulcer of right buttock, stage 3; G82.20 Paraplegia, unspecified; E44.0 Moderate protein-calorie malnutrition; R13.12 Dysphagia, oropharyngeal phase; N39.0 Urinary tract infection, site not specified; G35 Multiple sclerosis; Z74.01 Bed confinement status; N63 Unspecified lump in breast; I34.0 Nonrheumatic mitral (valve) insufficiency; X58.XXXA Exposure to other specified factors, initial encounter; K44.9 Diaphragmatic hernia without obstruction or gangrene; B95.2 Enterococcus as the cause of diseases classified elsewhere; G89.29 Other chronic pain; Z16.21 Resistance to vancomycin; D47.3 Essential (hemorrhagic) thrombocythemia; Z98.890 Other specified postprocedural states; Z90.710 Acquired absence of both cervix and uterus; Z82.49 Family history of ischemic heart disease and other diseases of the circulatory system; Z80.8 Family history of malignant neoplasm of other organs or systems; Z88.1 Allergy status to other antibiotic agents; Z88.8 Allergy status to other drugs, medicaments and biological substances; Z87.440 Personal history of urinary (tract) infections; Z87.442 Personal history of urinary calculi; Z68.25 Body mass index [BMI] 25.0-25.9, adult; Z93.3 Colostomy status; Z91.041 Radiographic dye allergy status; Z79.891 Long term (current) use of opiate analgesic
CPT/HCPCS: 36569; 36600; 70450; 71010; 73502-LT; 74000; 74176; 80048; 80053; 81001; 82306; 82533; 82607; 82728; 82746; 82805; 83605; 83735; 83880; 84100; 84132; 84145; 84155; 84165; 84484; 85025; 85610; 85730; 86140; 87040; 87070; 87077; 87086; 87186; 87205; 87449; 87641; 92610-GN; 93005; 94640; 96365; 96375; 96376; 97162-GP; 97166-GO; 99291; 99292; A9270-GY; C1751; C9113; J0290; J0692; J1170; J1956; J2310; J3260